=== PATIENT | female | born 1995 | race Caucasian/White ===

== ENCOUNTER 2017-08-11 06:17 | Inpatient (IN) ==
[2017-08-11] MEDS ORDERED: ceFAZolin 2,000 MG in PREMIX 1 EACH IV ONE (06:27)
[2017-08-11] MEDS ORDERED: CITRIC ACID/SODIUM CITRATE 30 ML UDCUP PO ONE (06:27)
[2017-08-11] MEDS ORDERED: FAMOTIDINE 20 MG/2 ML VIAL IV ONE (06:27)
[2017-08-11] MEDS ORDERED: LACTATED RINGERS 1,000 ML IV SCH (06:30)
[2017-08-11 06:57] LABS: Basophils % 0.3 % (0.0-0.8); Eosinophils # 0.1 10*3/uL (0.0-0.87); Hematocrit 35.3 VOL% (35.7-47.0); Hemoglobin 11.7 GM/DL (12.0-16.0); Immature Granulocytes % 1.8 %; Immature Granulocytes Absolute 0.26 #; Lymphocytes # 2.9 10*3/uL (1.4-4.0); Lymphocytes % 20.4 % (21.3-54.2); Mean Corpuscular HGB Conc 33.1 GM/DL (32-36); Mean Corpuscular Hemoglobin 29 PG (27-34); Mean Corpuscular Volume 87.6 FL (87-102); Mean Platelet Volume 11.5 FL (9.6-12.0); Monocytes # 1.1 10*3/uL (0.11-0.8); Monocytes % 7.9 % (1.7-12.7); Neutrophils # 9.7 10*3/uL (1.4-7.4); Neutrophils % 68.6 % (38.7-73.9); Platelet Count 217 T/CUMM (130-400); Red Blood Count 4.03 MC/CUMM (3.8-5.5); Red Cell Distribution Width 14.4 % (9.3-17.3); White Blood Count 14.1 T/CUMM (4-12)
[2017-08-11] MEDS ORDERED: LACTATED RINGERS 1,000 ML IV ONE (07:18)
[2017-08-11 07:21] LABS: Alanine Aminotransferase 11 U/L (13-56); Albumin 2.9 G/DL (3.4-5.0); Alkaline Phosphatase 108 U/L (45-117); Aspartate Amino Transferase 9 U/L (0-37); Bilirubin,Total < 0.39 MG/DL (0.2-1.0); Blood Urea Nitrogen 7 MG/DL (7-18); Calcium 8.4 MG/DL (8.5-10.1); Glucose 80 MG/DL (74-106); Osmolality,Calculated 273.5 MOS/KG (273-304); Sodium 139 MMOL/L (136-145); Total Protein 6.7 G/DL (6.4-8.3)
[2017-08-11] MEDS ORDERED: OXYTOCIN/LR 20 UNIT/1,000 ML BAG IV ONE ×2 (07:23→09:11)
[2017-08-11 08:53] LABS: Apearance,Urine CLEAR (Clear); Bilirubin,Urine Negative (Negative); Blood, Urine Negative (Negative); Glucose,Urine (UA) Negative (Negative); Ketones,Urine Negative (Negative); Mucus,Urine Occasional /LPF (Occasional); Nitrite,Urine Negative (Negative); Protein,Urine Negative; RBC,Urine <1 /HPF (0-4); Squamous Epithelial Cell,Urine Occasional /HPF (0-10); Urine Color Yellow (Yellow); Urine Specific Gravity 1.012 (1.001-1.035); Urine Urobilinogen < 2.0 EU/DL (0.2-1.0); WBC,Urine 1 /HPF (0-6)
[2017-08-11] MEDS ORDERED: ACETAMINOPHEN 325 MG TABLET PO PRN (09:11)
[2017-08-11] MEDS ORDERED: MAGNESIUM HYDROXIDE SUSP 30 ML UDCUP PO PRN (09:11)
[2017-08-11] MEDS ORDERED: RHO(D) IMMUNE GLOBULIN 300 MCG SYRINGE IM ONE (09:11)
[2017-08-11] MEDS ORDERED: ONDANSETRON 4 MG/2 ML VIAL IV PRN (09:11)
[2017-08-11] MEDS ORDERED: PROPOFOL 200 MG/20 ML VIAL IV ONE (10:35)
[2017-08-11] MEDS ORDERED: BUPIVACAINE SPINAL 0.75% 2 ML AMP SPINAL ONE (10:35)
[2017-08-11] MEDS ORDERED: ONDANSETRON 4 MG/2 ML VIAL ONE (10:36)
[2017-08-11] MEDS ORDERED: MORPHINE 10 MG/10 ML VIAL ONE (10:36)
[2017-08-11] MEDS ORDERED: ePHEDrine 50 MG/ML AMP ONE (10:36)
[2017-08-11] MEDS ORDERED: fentaNYL 100 MCG/2 ML VIAL ONE (10:36)
[2017-08-11] MEDS ORDERED: PHENYLEPHRINE 1 MG/10 ML SYRINGE IV ONE (10:37)
[2017-08-11] MEDS: ceFAZolin 1,000 MG in SYRINGE 1 EACH IV SCH ×2 (14:50→23:31)
[2017-08-11] MEDS: LACTATED RINGERS 1,000 ML IV SCH ×2 (19:07)
[2017-08-11] MEDS: oxyCODONE/ACETAMINOPHEN 5-325 MG TABLET PO PRN (23:43)
[2017-08-12] MEDS: DOCUSATE SODIUM 100 MG CAPSULE PO SCH ×3 (00:22→20:23)
[2017-08-12] MEDS: LACTATED RINGERS 1,000 ML IV SCH (03:09)
[2017-08-12 05:27] LABS: Basophils % 0.3 % (0.0-0.8); Eosinophils # 0.1 10*3/uL (0.0-0.87); Eosinophils % 0.9 % (0.00-10.9); Hematocrit 29.9 VOL% (35.7-47.0); Hemoglobin 9.7 GM/DL (12.0-16.0); Immature Granulocytes % 1.3 %; Lymphocytes # 2.6 10*3/uL (1.4-4.0); Lymphocytes % 17.2 % (21.3-54.2); Mean Corpuscular HGB Conc 32.4 GM/DL (32-36); Mean Corpuscular Hemoglobin 29 PG (27-34); Mean Corpuscular Volume 90.6 FL (87-102); Mean Platelet Volume 11.4 FL (9.6-12.0); Monocytes # 1.3 10*3/uL (0.11-0.8); Monocytes % 8.8 % (1.7-12.7); Neutrophils # 10.9 10*3/uL (1.4-7.4); Neutrophils % 71.5 % (38.7-73.9); Platelet Count 139 T/CUMM (130-400); Red Cell Distribution Width 14.5 % (9.3-17.3); White Blood Count 15.2 T/CUMM (4-12)
[2017-08-12] MEDS: MULTIVITAMIN (PRENATAL) TABLET PO SCH (08:47)
[2017-08-12] MEDS: SIMETHICONE CHEW 80 MG TABLET PO PRN (08:47)
[2017-08-12] MEDS: IBUPROFEN 800 MG TABLET PO PRN ×2 (08:48→20:24)
[2017-08-12] MEDS: oxyCODONE/ACETAMINOPHEN 5-325 MG TABLET PO PRN ×3 (08:49→20:26)
[2017-08-13] MEDS: DOCUSATE SODIUM 100 MG CAPSULE PO SCH (08:01)
[2017-08-13] MEDS: MULTIVITAMIN (PRENATAL) TABLET PO SCH (08:01)
[2017-08-13] MEDS: SIMETHICONE CHEW 80 MG TABLET PO PRN (08:02)
[2017-08-13] MEDS: IBUPROFEN 800 MG TABLET PO PRN (08:02)
[2017-08-13] MEDS: oxyCODONE/ACETAMINOPHEN 5-325 MG TABLET PO PRN (08:03)
[2017-08-13 08:43] VITALS: BP 115/83
== END 2017-08-13 13:30 | disposition home or self-care (01) | DRG 766 ==
LOC: N.LDOUT 06:17 → N.LD 06:18 → N.OB 11:17
PROVIDERS: ADMIT Obstetrics & Gynecology; ATTEND Obstetrics & Gynecology
PROC: LDCSECT (ICD-10-PCS; 2017-08-11 07:30)